=== PATIENT | male | born 1945 | race Caucasian/White ===

== ENCOUNTER 2019-10-23 10:12 | Emergency (ER) | payer MEDICARE, BC ==
[2019-10-23 10:29] VITALS: RESP 18; TEMP 98.5
[2019-10-23] MEDS ORDERED: FAMOTIDINE 20 MG/2 ML VIAL IV STA (10:43)
[2019-10-23] MEDS ORDERED: methylPREDNISolone SOD SUCCI 125 MG/2 ML VIAL IV STA (10:43)
[2019-10-23] MEDS ORDERED: diphenhydrAMINE 50 MG/ML 1 ML VIAL IVP STA (10:43)
--- NOTE | 2019-10-23 11:06 | ED ---
Allergic Reaction HPI - General Chief complaint: Allergic Reaction Stated complaint: hand swelling Time Seen by Provider: 10/23/19 10:29 Source: patient, RN notes reviewed, old records reviewed Mode of arrival: ambulatory Limitations: no limitations - History of Present Illness Initial Comments: Patient is a 74-year-old male presents return today with significant right hand and wrist pain and swelling after working in the garden yesterday. Patient be lieves that he may be stung by a bee and does report a significant history of ALLERGIES to bees. Patient reports the last time he did have some difficulty with breathing but after taking Benadryl and subsided. He reports that he had continued swelling and pain to the hand today. Patient has last had Benadryl at 6 AM. - Related Data Previous Rx's Medication Instructions Recorded EPINEPHrine (Auto Inject) [Epipen] 0.3 mg IM ONCE PRN #2 pen 10/23/19 Famotidine [Pepcid] 20 mg PO BID #20 tablet 10/23/19 diphenhydrAMINE [Benadryl] 25 mg PO QID PRN #20 capsule 10/23/19 predniSONE [Deltasone] 20 mg PO DIRECTED #12 tab 10/23/19 Allergies Allergy/AdvReac Type Severity Reaction Status Date / Time Sulfa (Sulfonamide Allergy Rash/Hives Verified 10/23/19 10:22 Antibiotics) Review of Systems ROS Statement: Those systems with pertinent positive or pertinent negative responses have been documented in the HPI. ROS Other: All systems not noted in ROS Statement are negative. Past Medical History Past Medical History: GERD/Reflux, Hypertension History of Any Multi-Drug Resistant Organisms: None Reported Past Surgical History: Orthopedic Surgery Additional Past Surgical History / Comment(s): B shoulder Past Psychological History: No Psychological Hx Reported Smoking Status: Never smoker Past Alcohol Use History: Daily Past Drug Use History: None Reported General Exam - General Exam Comments Initial Comments: Pleasant 74-year-old male. No significant distress. Limitations: no limitations General appearance: alert, in no apparent distress Head exam: Present: atraumatic, normocephalic, normal inspection Eye exam: Present: normal appearance, PERRL, EOMI. Absent: scleral icterus, conjunctival injection, periorbital swelling ENT exam: Present: normal exam, mucous membranes moist Neck exam: Present: normal inspection. Absent: tenderness, meningismus, lymphadenopathy Respiratory exam: Present: normal lung sounds bilaterally. Absent: respiratory distress, wheezes, rales, rhonchi, stridor Cardiovascular Exam: Present: regular rate, normal rhythm, normal heart sounds. Absent: systolic murmur, diastolic murmur, rubs, gallop, clicks GI/Abdominal exam: Present: soft, normal bowel sounds. Absent: distended, tende rness, guarding, rebound, rigid Extremities exam: Present: normal inspection, full ROM, normal capillary refill. Absent: tenderness, pedal edema, joint swelling, calf tenderness Right Upper Arm exam: Present: normal inspection, full ROM Elbow exam: Present: normal inspection, full ROM Forearm Wrist exam: Present: full ROM, swelling (No swelling of the distal forearm and wrist and hand.), erythema. Absent: normal inspection Hand Wrist exam: Present: swelling. Absent: normal inspection Neuro motor exam: Present: wrist extension intact, thumb opposition intact, thumb IP flexion intact, thumb adduction intact, fingers 2-5 abduction intact Neurosensory exam: Present: 2-point discrimination Vascular: Present: normal capillary refill Back exam: Present: normal inspection Neurological exam: Present: alert, oriented X3, CN II-XII intact Psychiatric exam: Present: normal affect, normal mood Skin exam: Present: warm, dry, intact, normal color. Absent: rash Course Vital Signs 10/23/19 10/23/19 10:23 12:04 Temperature 98.5 F Pulse Rate 77 78 Respiratory 18 18 Rate Blood Pressure 130/79 138/82 O2 Sat by Pulse 97 97 Oximetry - Reevaluation(s) Reevaluation #1: 10/23/19 12:28 Patient is reevaluated and his hand swelling is gone down somewhat at this time. Medical Decision Making - Medical Decision Making 74-year-old male presents return today for hand swelling after working in the yard yesterday. Please see may be was stung by a bee here to study history of ALLERGIES to bees. There is no evidence of a stinger or puncture wound on the hand and wrist at this time. Patient has significant edema and some pain with the staff interpreter strength with full range of motion and sensation and hand and normal pulse bilaterally. At this time patient's CBC was unremarkable. Is given IV site [facility] Benadryl Pepcid. On reevaluation reports it's improved. Patient will be discharged with an epinephrine pen as well. I discussed appropriate follow-up with primary care doctor. - Lab Data Result diagrams: 10/23/19 11:23 10/23/19 11:23 Lab Results 10/23/19 10/23/19 Range/Units 11:23 11:23 WBC 7.4 (3.8-10.6) k/uL RBC 4.12 L (4.30-5.90) m/uL Hgb 13.9 (13.0-17.5) gm/dL Hct 42.4 (39.0-53.0) % MCV 102.9 H (80.0-100.0) fL MCH 33.7 (25.0-35.0) pg MCHC 32.7 (31.0-37.0) g/dL RDW 12.6 (11.5-15.5) % Plt Count 199 (150-450) k/uL Neutrophils % 70 % Lymphocytes % 19 % Monocytes % 6 % Eosinophils % 2 % Basophils % 1 % Neutrophils # 5.2 (1.3-7.7) k/uL Lymphocytes # 1.4 (1.0-4.8) k/uL Monocytes # 0.5 (0-1.0) k/uL Eosinophils # 0.1 (0-0.7) k/uL Basophils # 0.0 (0-0.2) k/uL Macrocytosis Slight Sodium 137 (137-145) mmol/L Potassium 4.4 (3.5-5.1) mmol/L Chloride 105 (98-107) mmol/L Carbon Dioxide 24 (22-30) mmol/L Anion Gap 8 mmol/L BUN 18 (9-20) mg/dL Creatinine 0.62 L (0.66-1.25) mg/dL Est GFR (CKD-EPI)AfAm >90 (>60 ml/min/1.73 sqM) Est GFR (CKD-EPI)NonAf >90 (>60 ml/min/1.73 sqM) Glucose 87 (74-99) mg/dL Calcium 9.5 (8.4-10.2) mg/dL Disposition Clinical Impression: Allergic reaction, Hand swelling Disposition: HOME SELF-CARE Condition: Good Instructions (If sedation given, give patient instructions): Anaphylaxis (ED) Additional Instructions: Patient can wear the Jose Antonio wrap on her hand and wrist to help with swelling and compression. Take the medication as prescribed. Is using the epinephrine pen as needed if there is any worsening allergic reaction in future. Return to the ED if any alarming signs or symptoms occur. Prescriptions: diphenhydrAMINE [Benadryl] 25 mg PO QID PRN #20 capsule PRN Reason: Itching predniSONE [Deltasone] 20 mg PO DIRECTED #12 tab EPINEPHrine (Auto Inject) [Epipen] 0.3 mg IM ONCE PRN #2 pen PRN Reason: Anaphylaxis Famotidine [Pepcid] 20 mg PO BID #20 tablet Is patient prescribed a controlled substance at d/c from ED?: No Referrals: Nonstaff,Physician [Primary Care Provider] - 1-2 days Time of Disposition: 12:19
[2019-10-23 11:29] LABS: Basophils % (A) 1 %; Eosinophils # (A) 0.1 k/uL (0-0.7); Eosinophils % (A) 2 %; HCT 42.4 % (39.0-53.0); HGB 13.9 gm/dL (13.0-17.5); Lymphocytes # (A) 1.4 k/uL (1.0-4.8); Lymphocytes % (A) 19 %; MCH 33.7 pg (25.0-35.0); MCHC 32.7 g/dL (31.0-37.0); MCV 102.9 fL (80.0-100.0); Macrocytosis Slight; Mean Platelet Volume 7.2; Monocytes # (A) 0.5 k/uL (0-1.0); Monocytes % (A) 6 %; Neutrophils # (A) 5.2 k/uL (1.3-7.7); Neutrophils % (A) 70 %; Platelet Count 199 k/uL (150-450); RBC 4.12 m/uL (4.30-5.90); RDW 12.6 % (11.5-15.5); WBC 7.4 k/uL (3.8-10.6)
[2019-10-23 11:38] LABS: African American GFR (CKD) >90 (>60 ml/min/1.73 sqM); Anion Gap 8 mmol/L; Blood Urea Nitrogen 18 mg/dL (9-20); Calcium 9.5 mg/dL (8.4-10.2); Carbon Dioxide 24 mmol/L (22-30); Chloride 105 mmol/L (98-107); Glucose 87 mg/dL (74-99); Non-African American GFR(CKD) >90 (>60 ml/min/1.73 sqM); Potassium 4.4 mmol/L (3.5-5.1); Sodium 137 mmol/L (137-145)
[2019-10-23 12:35] VITALS: BP 115/75; PULSE 72
== END 2019-10-23 12:30 | disposition home or self-care (01) ==
LOC: EC 10:12
DX: M79.89 Other specified soft tissue disorders (principal); T63.441A Toxic effect of venom of bees, accidental (unintentional), initial encounter; Z88.2 Allergy status to sulfonamides
CPT/HCPCS: 36415; 80048; 85025; 99284; 96374; 96375 ×2; J1200; J2930

== ENCOUNTER 2022-09-16 16:10 | Emergency (ER) | payer MEDICARE, BC ==
[2022-09-16 16:41] VITALS: TEMP 98.1
--- NOTE | 2022-09-16 17:05 | ED ---
General Adult HPI - General Chief complaint: Extremity Problem,Nontraumatic Stated complaint: POSS BLOOD CLOT RT LEG Time Seen by Provider: 09/16/22 16:51 Source: patient Mode of arrival: ambulatory Limitations: no limitations - History of Present Illness Initial comments: 77-year-old male, alert and oriented 4 presents to the emergency room with family complaining of right calf cramping and swelling concerned for DVT. Patient states both legs have been swelling for over a year has talked to his doctor about this with no definitive answers. He does have doctors out of [place]. Does have history of hypertension and GERD. No history of congestive heart failure. Does state that he does have some ALLERGIES which cause him to have a cough. Patient states that the leg swelling improves when he is walking and worsens with just standing. Also improved when he wakes up in the morning. Denies any chest pain or difficulty breathing. -: year(s) (1) Location: left, right, lower extremity Severity scale (1-10): 3 Quality: other (cramp) Consistency: intermittent, now resolved Improves with: other (walking ) Worsens with: other (standing) Associated Symptoms: cough, other (blle swelling for one year) Treatments Prior to Arrival: none - Related Data Previous Rx's Medication Instructions Recorded EPINEPHrine (Auto Inject) [Epipen] 0.3 mg IM ONCE PRN #2 pen 10/23/19 Famotidine [Pepcid] 20 mg PO BID #20 tablet 10/23/19 diphenhydrAMINE [Benadryl] 25 mg PO QID PRN #20 capsule 10/23/19 predniSONE [Deltasone] 20 mg PO DIRECTED #12 tab 10/23/19 Allergies Allergy/AdvReac Type Severity Reaction Status Date / Time Sulfa (Sulfonamide Allergy Rash/Hives Verified 09/16/22 16:41 Antibiotics) Review of Systems ROS Statement: Those systems with pertinent positive or pertinent negative responses have been documented in the HPI. ROS Other: All systems not noted in ROS Statement are negative. Past Medical History Past Medical History: GERD/Reflux, Hypertension History of Any Multi-Drug Resistant Organisms: None Reported Past Surgical History: Orthopedic Surgery Additional Past Surgical History / Comment(s): B shoulder Past Psychological History: No Psychological Hx Reported Smoking Status: Never smoker Past Alcohol Use History: Daily Past Drug Use History: None Reported General Exam Limitations: no limitations General appearance: alert, in no apparent distress Head exam: Present: atraumatic Eye exam: Present: normal appearance. Absent: scleral icterus, conjunctival injection, periorbital swelling ENT exam: Present: mucous membranes moist Neck exam: Present: full ROM. Absent: meningismus Respiratory exam: Present: normal lung sounds bilaterally, wheezes, rales (Bilateral bases). Absent: rhonchi, stridor, chest wall tenderness, accessory muscle use, decreased breath sounds Cardiovascular Exam: Present: regular rate GI/Abdominal exam: Present: soft. Absent: distended, tenderness, rigid Extremities exam: Present: full ROM, normal capillary refill, pedal edema (2+ bilateral). Absent: tenderness, joint swelling, calf tenderness Back exam: Present: full ROM. Absent: tenderness, CVA tenderness (R), CVA tenderness (L), rash noted Neurological exam: Present: alert, oriented X3 Psychiatric exam: Present: normal affect, normal mood Skin exam: Present: warm, dry, normal color. Absent: cyanosis, diaphoretic, petechiae, pallor Course Vital Signs 09/16/22 09/16/22 09/16/22 16:36 17:21 17:30 Temperature 98.1 F Pulse Rate 87 90 Respiratory 20 16 Rate Blood Pressure 147/72 168/101 O2 Sat by Pulse 95 95 96 Oximetry 09/16/22 09/16/22 09/16/22 17:31 17:40 17:50 Temperature Pulse Rate 68 88 83 Respiratory 16 16 18 Rate Blood Pressure 168/95 157/98 157/98 O2 Sat by Pulse 98 94 L 96 Oximetry 09/16/22 09/16/22 09/16/22 18:00 18:10 18:20 Temperature Pulse Rate 89 86 92 Respiratory 18 16 Rate Blood Pressure 157/98 152/106 152/106 O2 Sat by Pulse 95 93 L 96 Oximetry 09/16/22 09/16/22 09/16/22 18:30 18:40 18:50 Temperature Pulse Rate 93 90 89 Respiratory Rate Blood Pressure 152/106 146/94 146/94 O2 Sat by Pulse 95 96 96 Oximetry 09/16/22 09/16/22 19:00 19:19 Temperature Pulse Rate 96 68 Respiratory 16 Rate Blood Pressure 146/94 148/94 O2 Sat by Pulse 98 Oximetry Medical Decision Making - Medical Decision Making Was pt. sent in by a medical professional or institution ([facility], [facility], urgent care, hospital, or care home...) When possible be specific @ -No Did you speak to anyone other than the patient for history (EMS, parent, family, police, friend...)? What history was obtained from this source @ -No Did you review nursing and triage notes (agree or disagree)? Why? @ -I reviewed and agree with nursing and triage notes Were old charts reviewed (outside hosp., previous admission, EMS record, old EKG, old radiological studies, urgent care reports/EKG's, care home records)? Report findings @ -No old charts were reviewed Differential Diagnosis (chest pain, altered mental status, abdominal pain women, abdominal pain men, vaginal bleeding, weakness, fever, dyspnea, syncope, headache, dizziness, GI bleed, back pain, seizure, CVA, palpatations, mental health, musculoskeletal)? @ -Lymphedema, DVT, congestive heart failure, cellulitis EKG interpreted by me (3pts min.). @ -yes EKG interpreted by me shows sinus rhythm with ventricular rate of 88. LA interval 0.187, QRS 0.116, QTC 0.410. Normal axis. X-rays interpreted by me (1pt min.). @ yes, chest x-ray directed by me shows no evidence of focal consolidation. Trachea is midline. Cardiac silhouette within normal size. Radiologist interpretation interstitial prominence without evidence for acute process. Somewhat low lung volumes. No acute cardiopulmonary disease process. CT interpreted by me (1pt min.). @ -None done U/S interpreted by me (1pt. min.). @ -no What testing was considered but not performed or refused? (CT, X-rays, U/S, labs)? Why? @ -None What meds were considered but not given or refused? Why? @ -None Did you discuss the management of the patient with other professionals (professionals i.e. [facility], [facility], lab, RT, psych nurse, 7th grade social studies teacher, medical management trainer, te acher, police officer crime prevention, disability case manager)? Give summary @ -No Was smoking cessation discussed for >3mins.? @ -No Was critical care preformed (if so, how long)? @ -No Were there social determinants of health that impacted care today? How? (Homelessness, low income, unemployed, alcoholism, drug addiction, transportation, low edu. Level, literacy, decrease access to med. care, correction, rehab)? @ -No Was there de-escalation of care discussed even if they declined (Discuss DNR or withdrawal of care, Hospice)? DNR status @ -No What co-morbidities impacted this encounter? (DM, HTN, Smoking, COPD, CAD, Cancer, CVA, ARF, Chemo, Hep., AIDS, mental health diagnosis, sleep apnea, morbid obesity)? @ -Hypertension, GERD Was patient admitted / discharged? Hospital course, mention meds given and route, prescriptions, significant lab abnormalities, going to OR and other pertinent info. @ discharged. 77-year-old male, alert and oriented 4 presents to the emergency room with family complaining of right calf cramping and swelling concerned for DVT. Patient states both legs have been swelling for over a year has talked to his doctor about this with no definitive answers. He does have doctors out of [place]. Does have history of hypertension and GERD. No history of congestive heart failure. Does state that he does have some ALLERGIES which cause him to have a cough. Patient states that the leg swelling improves when he is walking and worsens with just standing. Also improved when he wakes up in the morning. Denies any chest pain or difficulty breathing. Patient states He has resolved at this time and declines any pain medication. CBC and electrolytes are unremarkable. D-dimer is negative at 0.36. Troponin negative at 0.02. BNP 67. EKG interpreted by me shows sinus rhythm with ventricular rate of 88. LA interval 0.187, QRS 0.116, QTC 0.410. Normal axis. Ultrasound bilateral lower extremities show normal flow compressibility and vascular waveforms. Negative for DVT right leg and left leg. Symptoms are consistent with a peripheral edema. He was directed to use compression socks and elevate legs at night. Patient states he has appointment with his doctor in 2 weeks. Directed to return if any new concerning symptoms. Case discussed with Dr. Calloway Undiagnosed new problem with uncertain prognosis? @ -No Drug Therapy requiring intensive monitoring for toxicity (Heparin, Nitro, Insulin, Cardizem)? @ -No Were any procedures done? @ -No Diagnosis/symptom? @ -Peripheral edema Acute, or Chronic, or Acute on Chronic? @ -Acute Uncomplicated (without systemic symptoms) or Complicated (systemic symptoms)? @ -Uncomplicated Side effects of treatment? @ -No Exacerbation, Progression, or Severe Exacerbation? @ -No Poses a threat to life or bodily function? How? (Chest pain, [place], CO, pneumonia, PE, COPD, DKA, ARF, appy, cholecystitis, CVA, Diverticulitis, Homicidal, Suicidal, threat to staff... and all critical care pts) @ -No - Lab Data Result diagrams: 09/16/22 17:01 09/16/22 17:01 Lab Results 09/16/22 09/16/22 09/16/22 Range/Units 17:01 17:01 17:01 WBC 5.0 (3.8-10.6) k/uL RBC 4.17 L (4.30-5.90) m/uL Hgb 14.1 (13.0-17.5) gm/dL Hct 41.6 (39.0-53.0) % MCV 99.8 (80.0-100.0) fL MCH 33.8 (25.0-35.0) pg MCHC 33.9 (31.0-37.0) g/dL RDW 12.5 (11.5-15.5) % Plt Count 243 (150-450) k/uL MPV 7.1 Neutrophils % 57 % Lymphocytes % 30 % Monocytes % 8 % Eosinophils % 2 % Basophils % 0 % Neutrophils # 2.9 (1.3-7.7) k/uL Lymphocytes # 1.5 (1.0-4.8) k/uL Monocytes # 0.4 (0-1.0) k/uL Eosinophils # 0.1 (0-0.7) k/uL Basophils # 0.0 (0-0.2) k/uL PT 9.5 (9.0-12.0) sec INR 0.9 (<1.2) APTT 23.9 (22.0-30.0) sec D-Dimer 0.36 (<0.60) mg/L FEU Sodium 139 (137-145) mmol/L Potassium 3.6 (3.5-5.1) mmol/L Chloride 105 (98-107) mmol/L Carbon Dioxide 27 (22-30) mmol/L Anion Gap 7 mmol/L BUN 14 (9-20) mg/dL Creatinine 0.59 L (0.66-1.25) mg/dL Est GFR (CKD-EPI)AfAm >90 (>60 ml/min/1.73 sqM) Est GFR (CKD-EPI)NonAf >90 (>60 ml/min/1.73 sqM) Glucose 88 (74-99) mg/dL Plasma Lactic Acid Cody (0.7-2.0) mmol/L Calcium 8.9 (8.4-10.2) mg/dL Magnesium 1.8 (1.6-2.3) mg/dL Total Bilirubin 0.5 (0.2-1.3) mg/dL AST 32 (17-59) U/L ALT 32 (4-49) U/L Alkaline Phosphatase 56 (38-126) U/L Troponin I (0.000-0.034) ng/mL NT-Pro-B Natriuret Pep pg/mL Total Protein 6.7 (6.3-8.2) g/dL Albumin 4.0 (3.5-5.0) g/dL 09/16/22 09/16/22 09/16/22 Range/Units 17:01 17:01 17:01 WBC (3.8-10.6) k/uL RBC (4.30-5.90) m/uL Hgb (13.0-17.5) gm/dL Hct (39.0-53.0) % MCV (80.0-100.0) fL MCH (25.0-35.0) pg MCHC (31.0-37.0) g/dL RDW (11.5-15.5) % Plt Count (150-450) k/uL MPV Neutrophils % % Lymphocytes % % Monocytes % % Eosinophils % % Basophils % % Neutrophils # (1.3-7.7) k/uL Lymphocytes # (1.0-4.8) k/uL Monocytes # (0-1.0) k/uL Eosinophils # (0-0.7) k/uL Basophils # (0-0.2) k/uL PT (9.0-12.0) sec INR (<1.2) APTT (22.0-30.0) sec D-Dimer (<0.60) mg/L FEU Sodium (137-145) mmol/L Potassium (3.5-5.1) mmol/L Chloride (98-107) mmol/L Carbon Dioxide (22-30) mmol/L Anion Gap mmol/L BUN (9-20) mg/dL Creatinine (0.66-1.25) mg/dL Est GFR (CKD-EPI)AfAm (>60 ml/min/1.73 sqM) Est GFR (CKD-EPI)NonAf (>60 ml/min/1.73 sqM) Glucose (74-99) mg/dL Plasma Lactic Acid Cody 0.7 (0.7-2.0) mmol/L Calcium (8.4-10.2) mg/dL Magnesium (1.6-2.3) mg/dL Total Bilirubin (0.2-1.3) mg/dL AST (17-59) U/L ALT (4-49) U/L Alkaline Phosphatase (38-126) U/L Troponin I <0.012 (0.000-0.034) ng/mL NT-Pro-B Natriuret Pep 67 pg/mL Total Protein (6.3-8.2) g/dL Albumin (3.5-5.0) g/dL Disposition Clinical Impression: Swelling of both lower extremities Disposition: HOME SELF-CARE Condition: Good Instructions (If sedation given, give patient instructions): Leg Edema (ED) Additional Instructions: Elevate your legs when resting. Use compression socks that are fitted to you by measurement of your calf circumference. Follow-up with the primary care doctor in 2 weeks. Return to the emergency room with any new or concerning symptoms including chest pain or difficulty in breathing Is patient prescribed a controlled substance at d/c from ED?: No Referrals: None,Stated [Primary Care Provider] - 1-2 days Time of Disposition: 19:02
[2022-09-16 17:34] VITALS: RESP 16
[2022-09-16 17:51] LABS: Basophils % (A) 0 %; Eosinophils # (A) 0.1 k/uL (0-0.7); Eosinophils % (A) 2 %; HCT 41.6 % (39.0-53.0); HGB 14.1 gm/dL (13.0-17.5); Lymphocytes # (A) 1.5 k/uL (1.0-4.8); Lymphocytes % (A) 30 %; MCH 33.8 pg (25.0-35.0); MCHC 33.9 g/dL (31.0-37.0); MCV 99.8 fL (80.0-100.0); Mean Platelet Volume 7.1; Monocytes # (A) 0.4 k/uL (0-1.0); Monocytes % (A) 8 %; Neutrophils # (A) 2.9 k/uL (1.3-7.7); Neutrophils % (A) 57 %; Platelet Count 243 k/uL (150-450); RBC 4.17 m/uL (4.30-5.90); RDW 12.5 % (11.5-15.5)
[2022-09-16 18:03] LABS: ALT 32 U/L (4-49); AST 32 U/L (17-59); African American GFR (CKD) >90 (>60 ml/min/1.73 sqM); Alkaline Phosphatase 56 U/L (38-126); Anion Gap 7 mmol/L; Blood Urea Nitrogen 14 mg/dL (9-20); Calcium 8.9 mg/dL (8.4-10.2); Carbon Dioxide 27 mmol/L (22-30); Chloride 105 mmol/L (98-107); Glucose 88 mg/dL (74-99); Magnesium 1.8 mg/dL (1.6-2.3); Non-African American GFR(CKD) >90 (>60 ml/min/1.73 sqM); Potassium 3.6 mmol/L (3.5-5.1); Sodium 139 mmol/L (137-145); Total Bilirubin 0.5 mg/dL (0.2-1.3); Total Protein 6.7 g/dL (6.3-8.2)
[2022-09-16 18:07] LABS: INR 0.9 (<1.2); Partial Thromboplastin Time 23.9 sec (22.0-30.0); Prothrombin Time 9.5 sec (9.0-12.0)
--- NOTE | 2022-09-16 18:23 | US ---
EXAMINATION TYPE: US venous doppler duplex LE DATE OF EXAM: 09/16/2022 6:02 PM COMPARISON: NONE CLINICAL INDICATION: Male, 77 years old with history of swelling pt concerned for DVT; Leg pain and s welling SIDE PERFORMED: Bilateral TECHNIQUE: The lower extremity deep venous system is examined utilizing real time linear array sonog el with graded compression, doppler sonography and color-flow sonography. VESSELS IMAGED: Common Femoral Vein Deep Femoral Vein Greater Saphenous Vein * Femoral Vein Popliteal Vein Small Saphenous Vein * Proximal Calf Veins (* superficial vessels) Right Leg: Negative for DVT Left Leg: Negative for DVT IMPRESSION: Grayscale, color doppler, spectral doppler imaging performed of the deep veins of the lo wer extremities. There is normal flow, compressibility, vascular waveforms.
--- NOTE | 2022-09-16 18:33 | XR ---
EXAMINATION TYPE: XR chest 2V DATE OF EXAM: 09/16/2022 6:19 PM COMPARISON: Chest radiographs from TECHNIQUE: XR chest 2V Frontal and lateral views of the chest. CLINICAL INDICATION:Male, 77 years old with history of difficulty breathing; FINDINGS: Lungs/Pleura: Prominent interstitial lung markings are seen scattered throughout the lungs. No eviden ce of focal consolidation, pneumothorax or pleural effusion. Pulmonary vascularity: Unremarkable. Heart/mediastinum: Cardiomediastinal silhouette is unremarkable. Musculoskeletal: No acute osseous pathology. IMPRESSION: Interstitial prominence without evidence for acute process. There are somewhat low lung volumes. No a cute cardiopulmonary disease/process.
[2022-09-16 19:19] VITALS: BP 148/94; PULSE 68
== END 2022-09-16 19:19 | disposition home or self-care (01) ==
LOC: EC 16:10
DX: M79.89 Other specified soft tissue disorders (principal); I10 Essential (primary) hypertension; Z88.2 Allergy status to sulfonamides
CPT/HCPCS: 36415; 71046; 80053; 83605; 83735; 83880; 84484; 85025; 85379; 85610; 85730; 93005; 93970; 99284